=== PATIENT | female | born 2000 | race Caucasian/White ===

== ENCOUNTER 2023-06-24 14:58 | Outpatient (CLI) | payer BC, OTHER ==
[2023-06-24 17:07] LABS: Hematocrit 41.7 % (34.9-44.5)
[2023-06-24 17:42] LABS: BHCG - Serum Negative (NEGATIVE); Pregs Control Background? CLEAR/WHITE (CLR/WHITE); Pregs Control Bar Appear? YES (CONTROL BAR)
== END 2023-06-24 14:59 | disposition home or self-care (01) ==
LOC: CSHLAB 14:58
PROVIDERS: ATTEND Otolaryngology Otolaryngic Allergy
DX: Z01.812 Encounter for preprocedural laboratory examination (principal); J34.2 Deviated nasal septum; J34.3 Hypertrophy of nasal turbinates; G47.33 Obstructive sleep apnea (adult) (pediatric); J35.1 Hypertrophy of tonsils
CPT/HCPCS: 84703; 85014

== ENCOUNTER 2023-06-29 07:10 | Observation (INO) | payer BC, OTHER ==
[2023-06-29 07:36] VITALS: BMI 26.5
[2023-06-29] MEDS ORDERED: Oxymetazoline HCl 0.05% ( 15 ML ) ONE ×2 (07:48→11:02)
[2023-06-29] MEDS ORDERED: Lidocaine 1% PF 5 ML VIAL ONE (09:12)
[2023-06-29] MEDS ORDERED: Midazolam HCl 2 mg/2 ml Vial ONE (09:12)
[2023-06-29] MEDS ORDERED: Rocuronium Bromide 10 MG/ML (10ML VIAL) ONE (09:12)
[2023-06-29] MEDS ORDERED: Ondansetron PF 4 MG/2 ML Vial ONE (09:12)
[2023-06-29] MEDS ORDERED: fentaNYL 50 mcg/mL 1 mL Vial ONE ×3 (09:12→13:52)
[2023-06-29] MEDS ORDERED: Glycopyrrolate 0.2 MG/ML 5 ML SYRINGE ONE (09:12)
[2023-06-29] MEDS ORDERED: PROPOFOL 20 ML ONE (09:12)
[2023-06-29] MEDS ORDERED: Dexamethasone 20 MG/5 ML VIAL ONE (09:12)
[2023-06-29] MEDS ORDERED: Triple Antibiotic Oint 1 GM Packet ONE (11:09)
[2023-06-29] MEDS ORDERED: CEFAZOLIN 2 GM VIAL ONE (11:22)
[2023-06-29] MEDS ORDERED: Bacitracin-Polymyxin B Opth Oint 3.5 GM TUBE ONE (12:16)
[2023-06-29] MEDS ORDERED: Lidocaine 1% w/Epinephrine 1:100K 20 ML VIAL ONE (12:16)
[2023-06-29] MEDS ORDERED: PHENYLEPHRINE-NS 100 MCG/ML 10 ML SYRINGE ONE (12:58)
[2023-06-29] MEDS ORDERED: Meperidine HCl/PF 25 MG/ML VIAL ONE (13:07)
[2023-06-29] MEDS ORDERED: Promethazine HCl 12.5 MG in Sodium Chloride 0.9% 50 ML IVPB PRN (13:26)
[2023-06-29] MEDS ORDERED: Oxymetazoline HCl 0.05% ( 15 ML ) NASAL PRN (13:30)
[2023-06-29] MEDS: Ibuprofen 100 MG/5 ML UDCUP PO SCH ×2 (17:46→22:03)
[2023-06-29] MEDS: Sodium Chloride 0.65% Nasal 44 ML BOT EA NARE SCH ×2 (17:49→22:04)
[2023-06-29] MEDS: Sodium Chloride 0.9% 1,000 ML IV SCH (17:49)
[2023-06-29] MEDS ORDERED: Venlafaxine HCl 37.5 MG TAB PO SCH (21:00)
[2023-06-29] MEDS ORDERED: Escitalopram Oxalate 10 mg Tablet PO SCH (21:00)
[2023-06-29] MEDS ORDERED: LEVONORGESTREL ETHIN ESTRADIOL PO SCH (21:00)
[2023-06-30] MEDS: Acetaminophen W/ Codeine 5 ML UDCUP PO PRN ×2 (01:15→09:48)
[2023-06-30] MEDS: Ibuprofen 100 MG/5 ML UDCUP PO SCH ×2 (04:32→09:45)
[2023-06-30] MEDS: Sodium Chloride 0.9% 1,000 ML IV SCH (04:32)
[2023-06-30 08:50] VITALS: BP 113/68; TEMP 98.1
[2023-06-30] MEDS ORDERED: busPIRone HCl 5 MG TAB PO SCH (09:00)
== END 2023-06-30 10:15 | disposition home or self-care (01) ==
LOC: CSHSDC 07:10 → CSHTELE 07:36
PROVIDERS: ADMIT Otolaryngology Otolaryngic Allergy; ATTEND Otolaryngology Otolaryngic Allergy
PROC: 09SM0ZZ Reposition Nasal Septum, Open Approach (ICD-10-PCS; principal; 2023-06-29)
PROC: 0CTPXZZ Resection of Tonsils, External Approach (ICD-10-PCS; 2023-06-29)
PROC: 0CTQ0ZZ Resection of Adenoids, Open Approach (ICD-10-PCS; 2023-06-29)
DX: J34.2 Deviated nasal septum (principal); J34.3 Hypertrophy of nasal turbinates; J35.01 Chronic tonsillitis; G47.33 Obstructive sleep apnea (adult) (pediatric); F10.90 Alcohol use, unspecified, uncomplicated; Z79.899 Other long term (current) drug therapy
CPT/HCPCS: 88304; 94760; J1100; J2175; J2250; J2405; J2704; J3010; J7050